=== PATIENT | male | born 1970 | race Caucasian/White ===

== ENCOUNTER 2017-07-29 11:17 | Emergency (ER) | payer SELFPAY ==
[~2017-07-29] VITALS: Ht 188 cm; Wt 135.9 kg
[~2017-07-29 11:17] MED LIST: no home
[2017-07-29 13:21] LABS: HEMATOCRIT 46.3 % (38.0-50.0); MCH 29.4 PG (29.0-34.0); MCHC 33.5 G/DL (30.0-36.0); MCV 87.7 FL (86-99); MEAN PLAT.VOLUME 8.7 uM^3 (9.0-12.4); PLATELET COUNT 275 K/uL (156-360); RBC DIS.WIDTH-CV 13.2 % (11.8-14.6); RBC DIS.WIDTH-SD 42.8 % (39-53); RED BLOOD COUNT 5.28 M/uL (4.00-5.50); WHITE BLOOD COUNT 10.7 K/uL (4.1-10.2)
[2017-07-29 13:36] LABS: CHLORIDE 105 mEq/L (99-109); POTASSIUM 4.8 mEq/L (3.7-5.4); SODIUM 139 mEq/L (136-147)
[2017-07-29 13:38] LABS: GLUCOSE 109 mg/dL (70-99)
[2017-07-29 13:39] LABS: ANION GAP 12 MEQ/L (2-14)
[2017-07-29 13:40] LABS: TOTAL BILIRUBIN 0.4 mg/dL (0.0-1.0)
[2017-07-29 13:41] LABS: ALKALINE PHOSPHATASE 78 IU/L (3-129)
[2017-07-29 13:42] LABS: GFR ESTIMATE (CALCULATED) > 59 mL/min/
[2017-07-29 13:43] LABS: UREA NITROGEN (BUN) 14 mg/dL (9-23)
[2017-07-29 13:45] LABS: URIC ACID 7.3 mg/dL (3.1-9.2)
[2017-07-29] MEDS ORDERED: INDOCIN50 MG PO (13:48)
[2017-07-29 14:07] LABS: C-REACTIVE PROTEIN 9.4 MG/L (0-10); SAMPLE HEMOLYSIS CHECK 0; SAMPLE ICTERIC CHECK 0; SAMPLE LIPEMIA CHECK 0
[2017-07-29] MEDS ORDERED: COLCHICINE0.6 M1 PO (14:16)
[2017-07-29] MEDS ORDERED: PERCOCET 5/31 TABLET PO (14:19)
[2017-07-29 14:29] VITALS: BP 155/100
== END 2017-07-29 14:32 | disposition home or self-care (01) ==
LOC: EME 11:17
PROVIDERS: Nurse Practitioner Family
DX: M10.9 Gout, unspecified (principal); Z87.442 Personal history of urinary calculi; Z87.891 Personal history of nicotine dependence
CPT/HCPCS: 80053; 84550; 85027; 86140; 99281; 99284